=== PATIENT | male | born 2000 | race Caucasian/White ===

== ENCOUNTER 2018-01-16 10:14 | Emergency (ER) | payer OTHER ==
[~2018-01-16] VITALS: Ht 188 cm; Wt 99.8 kg
[~2018-01-16 10:14] MED LIST: CETI5 PO; FLUT.05NI; Percocet 5-3251 EACH PO; Vibramycin100 MG PO
[2018-01-16] MEDS ORDERED: IBUP800 PO (10:29)
[2018-01-16] MEDS ORDERED: CYCL10 PO (10:29)
== END 2018-01-16 10:32 | disposition home or self-care (01) ==
LOC: ER 10:14
DX: Z04.1 Encounter for examination and observation following transport accident (principal); V49.9XXA Car occupant (driver) (passenger) injured in unspecified traffic accident, initial encounter
CPT/HCPCS: 99283

== ENCOUNTER 2019-12-06 20:08 | Emergency (ER) | payer BC ==
[~2019-12-06] VITALS: Ht 185.4 cm; Wt 99.8 kg
[~2019-12-06 20:08] MED LIST changes: +CYCL10 PO; +IBUP800 PO
[2019-12-07] MEDS ORDERED: LORTAB 10 MG-3473 ML PO (00:14)
== END 2019-12-07 00:32 | disposition home or self-care (01) ==
LOC: ER 20:08
DX: S00.511A Abrasion of lip, initial encounter (principal); S09.93XA Unspecified injury of face, initial encounter; Y04.8XXA Assault by other bodily force, initial encounter
CPT/HCPCS: 99282